=== PATIENT | female | born 1985 | race Caucasian/White ===

== ENCOUNTER 2022-11-16 21:08 | Emergency (ER) | payer BC ==
[~2022-11-16] VITALS: Ht 157.5 cm; Wt 77.7 kg
[~2022-11-16 21:08] MED LIST: BUPR1FIL3 SL; DIAZ10TA15 PO; QUET50TA24 PO; RIZA5TAB83 SL; SUMA50TA17 PO
[2022-11-16 22:36] VITALS: BP 115/72
[2022-11-16] MEDS ORDERED: ketorolac trometh inj. 60 MG/2 ML VIAL IM ONE (23:00)
[2022-11-16] MEDS ORDERED: HYDROcodone/acetaminophen 5mg/325mg tablet PO ONE (23:00)
[2022-11-16] MEDS ORDERED: HYDR-3965 PO (23:02)
== END 2022-11-16 23:20 | disposition home or self-care (01) ==
LOC: ER 21:13
DX: T14.8XXA Other injury of unspecified body region, initial encounter (principal); M79.641 Pain in right hand; M79.642 Pain in left hand; Z88.2 Allergy status to sulfonamides; Z98.890 Other specified postprocedural states; Z56.0 Unemployment, unspecified; W22.8XXA Striking against or struck by other objects, initial encounter; Y93.89 Activity, other specified; Y92.89 Other specified places as the place of occurrence of the external cause; Y99.8 Other external cause status
CPT/HCPCS: 29125; 73130; 96372; 99283; J1885; 29130

== ENCOUNTER 2023-08-28 08:16 | Emergency (ER) | payer BC ==
[~2023-08-28] VITALS: Ht 157.5 cm; Wt 71.0 kg
[2023-08-28 08:23] VITALS: TEMP 97.8
[2023-08-28 08:49] LABS: BILIRUBIN,URINE NEGATIVE (Neg); CLARITY,URINE CLOUDY (Clear); COLOR,URINE YELLOW (Yellow); GLUCOSE, URINE NEGATIVE (Neg); KETONES,URINE NEGATIVE (Neg); LEUKOCYTE ESTERASE ,URINE NEGATIVE (Neg); NITRITES, URINE POSITIVE (Neg); OCCULT BLOOD,URINE NEGATIVE (Neg); PROTEIN,URINE NEGATIVE (Neg); UROBILINOGEN,URINE 0.2 E.U/dL (0.2-1.0)
[2023-08-28 08:51] LABS: URINE HCG NEGATIVE (NEG)
[2023-08-28 09:02] LABS: UA COLLECTION TYPE CLN CATCH MIDSTREAM
[2023-08-28 09:03] LABS: BACTERIA,URINE 4+ /HPF (Neg); SQUAMOUS EPITHELIAL CELL,UR MANY /LPF (FEW)
[2023-08-28 09:04] LABS: RBC,URINE 0-2 /HPF (0-2)
[2023-08-28 09:27] LABS: BASOPHILS % (AUTO) 0.4 % (0-1); EOSINOPHILS # (AUTO) 0.1 X10'3 (0-0.9); EOSINOPHILS % (AUTO) 1.2 % (0-6); HEMATOCRIT 36.2 % (35.0-45.0); HEMOGLOBIN 12.1 g/dl (12.0-16.0); LYMPHOCYTES # (AUTO) 1.4 X10'3 (1.1-4.8); LYMPHOCYTES % (AUTO) 21.7 % (21-51); MEAN CORPUSCULAR HEMOGLOBIN 27.3 PG (27.0-31.0); MEAN CORPUSCULAR HGB CONC 33.3 g/dL (33.0-36.5); MEAN PLATELET VOLUME 8.3 FL (7.4-10.4); MONOCYTES # (AUTO) 0.3 X10'3 (0-0.9); MONOCYTES % (AUTO) 4.5 % (2-12); NEUTROPHILS # (AUTO) 4.7 X10'3 (1.8-7.7); NEUTROPHILS % (AUTO) 72.2 % (42-75); PLATELET COUNT 195 X10'3 (140-440); RED BLOOD COUNT 4.41 X10'6 (4.20-5.60); WHITE BLOOD COUNT 6.6 X10'3 (4.5-11.0)
[2023-08-28 09:39] LABS: ALANINE AMINOTRANSFERASE 15 U/L (12-78); ALBUMIN 3.7 G/DL (3.4-5.0); ALBUMIN/GLOBULIN RATIO 1.1 (1.1-1.5); ALKALINE PHOSPHATASE 53 IU/L (46-116); ANION GAP 7 (8-16); ASPARTATE AMINO TRANSFERASE 15 U/L (10-37); BILIRUBIN,TOTAL 0.3 MG/DL (0.1-1.0); BLOOD UREA NITROGEN 9 MG/DL (7-18); BUN/CREATININE RATIO 12.7 (10.0-20.0); CALCIUM 8.9 MG/DL (8.5-10.1); CHLORIDE 103 MMOL/L (99-107); CREATININE 0.71 MG/DL (0.40-0.90); GLUCOSE 106 MG/DL (70-104); LIPASE 12 U/L (16-77); POTASSIUM 4.2 MMOL/L (3.5-5.1); SODIUM 138 MMOL/L (135-145); TOTAL CARBON DIOXIDE 28.3 MMOL/L (24-32); TOTAL PROTEIN 7.2 G/DL (6.4-8.2); eCRCL 85 ML/MIN; eGFR > 90 ML/MIN
[2023-08-28] MEDS ORDERED: CefTRIAXone/D5W-Rocephin 1gm 50 ML IV ONE (11:05)
[2023-08-28] MEDS ORDERED: ondansetron/PF 4mg/2ml inj IV ONE (11:05)
[2023-08-28] MEDS ORDERED: ringers solution, lacted 1,000 ML IV ONE (11:05)
[2023-08-28] MEDS ORDERED: morphine 4 MG/ML inj SYRINge IV ONE (11:05)
[2023-08-28 13:44] VITALS: BP 105/63; PULSE 88; O2SAT 100
[2023-08-28] MEDS ORDERED: HYDROcodone/acetaminophen 10/325mg tab PO ONE (13:55)
[2023-08-28] MEDS ORDERED: HYDR-3965 PO (13:56)
[2023-08-28] MEDS ORDERED: CEPH-585 PO (13:56)
[2023-08-28 14:03] VITALS: RESP 16
== END 2023-08-28 14:10 | disposition home or self-care (01) ==
LOC: ER 08:17
DX: N39.0 Urinary tract infection, site not specified (principal); F31.9 Bipolar disorder, unspecified; Z98.890 Other specified postprocedural states; Z88.2 Allergy status to sulfonamides; Z79.899 Other long term (current) drug therapy
CPT/HCPCS: 36415; 80053; 81001; 81025; 83690; 85025; 96365; 96366; 96375; 99284; A6258; J0696; J2270; J2405; J7120

== ENCOUNTER 2023-11-12 11:17 | Inpatient (IN) | payer BC, OTHER ==
[~2023-11-12] VITALS: Ht 157.5 cm; Wt 68.3 kg
[2023-11-12 12:34] LABS: URINE HCG NEGATIVE (NEG)
[2023-11-12 12:36] LABS: BILIRUBIN,URINE NEGATIVE (Neg); CLARITY,URINE SLIGHTLY CLOUDY (Clear); COLOR,URINE YELLOW (Yellow); GLUCOSE, URINE NEGATIVE (Neg); KETONES,URINE NEGATIVE (Neg); LEUKOCYTE ESTERASE ,URINE NEGATIVE (Neg); NITRITES, URINE NEGATIVE (Neg); OCCULT BLOOD,URINE NEGATIVE (Neg); PH,URINE 5.5 (4.8-8.0); PROTEIN,URINE NEGATIVE (Neg); UROBILINOGEN,URINE 0.2 E.U/dL (0.2-1.0)
[2023-11-12 12:42] LABS: MUCUS STRANDS MODERATE /LPF (Neg); SQUAMOUS EPITHELIAL CELL,UR MANY /LPF (FEW); UA COLLECTION TYPE CLN CATCH MIDSTREAM
[2023-11-12 12:43] LABS: BACTERIA,URINE 2+ /HPF (Neg)
[2023-11-12 12:44] LABS: AMORPHOUS URATES 1+; RBC,URINE 0-2 /HPF (0-2); TRANSITIONAL EPI CELLS,URINE FEW /HPF; WBC,URINE 0-4 /HPF (0-4)
[2023-11-12 13:21] LABS: BASOPHILS % (AUTO) 0.7 % (0-1); EOSINOPHILS # (AUTO) 0.1 X10'3 (0-0.9); EOSINOPHILS % (AUTO) 2.1 % (0-6); HEMATOCRIT 35.3 % (35.0-45.0); HEMOGLOBIN 11.7 g/dl (12.0-16.0); LYMPHOCYTES # (AUTO) 1.6 X10'3 (1.1-4.8); LYMPHOCYTES % (AUTO) 23.4 % (21-51); MEAN CORPUSCULAR HEMOGLOBIN 27.2 PG (27.0-31.0); MEAN CORPUSCULAR VOLUME 82.2 FL (78-98); MEAN PLATELET VOLUME 8.3 FL (7.4-10.4); MONOCYTES # (AUTO) 0.5 X10'3 (0-0.9); MONOCYTES % (AUTO) 7.3 % (2-12); NEUTROPHILS # (AUTO) 4.6 X10'3 (1.8-7.7); NEUTROPHILS % (AUTO) 66.5 % (42-75); PLATELET COUNT 230 X10'3 (140-440); RED BLOOD COUNT 4.29 X10'6 (4.20-5.60)
[2023-11-12 13:34] LABS: ALANINE AMINOTRANSFERASE 35 U/L (12-78); ALBUMIN 3.7 G/DL (3.4-5.0); ALKALINE PHOSPHATASE 77 IU/L (46-116); ANION GAP 7 (8-16); ASPARTATE AMINO TRANSFERASE 22 U/L (10-37); BILIRUBIN,TOTAL 0.6 MG/DL (0.1-1.0); BLOOD UREA NITROGEN 10 MG/DL (7-18); BUN/CREATININE RATIO 12.5 (10.0-20.0); CALCIUM 8.6 MG/DL (8.5-10.1); CHLORIDE 103 MMOL/L (99-107); GLUCOSE 94 MG/DL (70-104); LIPASE 9 U/L (16-77); POTASSIUM 4.1 MMOL/L (3.5-5.1); SODIUM 139 MMOL/L (135-145); TOTAL CARBON DIOXIDE 29.3 MMOL/L (24-32); TOTAL PROTEIN 7.3 G/DL (6.4-8.2); eCRCL 75 ML/MIN; eGFR 80 ML/MIN
[2023-11-12] MEDS: ondansetron/PF 4mg/2ml inj IV ONE (18:09)
[2023-11-12] MEDS: HYDROmorphone inj. 0.5 MG/0.5 ML DISP.SYRIN IV ONE (18:09)
[2023-11-12] MEDS: morphine 4 MG/ML inj SYRINge IV ONE (19:20)
[2023-11-12] MEDS ORDERED: acetaminophen 325mg tablet PO PRN (20:30)
[2023-11-12] MEDS ORDERED: magnesium hydroxide 30ml (MOM) UD suspension PO PRN (20:30)
[2023-11-12] MEDS ORDERED: potassium Cl 40MEQ/1/2NS 520ml 520 ML IV PRN (20:30)
[2023-11-12] MEDS ORDERED: mag hydrox/Alum hydrox/simeth 30ml oral suspension PO PRN (20:30)
[2023-11-12] MEDS ORDERED: magnesium Cl slow-release 64mg tablet PO PRN (20:30)
[2023-11-12] MEDS ORDERED: potassium Cl 20 mEq SR tablet PO PRN ×2 (20:30)
[2023-11-12] MEDS ORDERED: magnesium 4gm in 100ml NS 100 ML IV PRN (20:30)
[2023-11-12] MEDS: ringers solution, lacted 1,000 ML IV ONE (20:35)
[2023-11-12 21:58] LABS: APTT 28 SECONDS (22-32); INR 1.1 INR; PROTHROMBIN TIME 11.4 SECONDS (9.0-12.0)
[2023-11-12] MEDS ORDERED: RIZA10TA98 (22:30)
[2023-11-12] MEDS ORDERED: SERT-433 PO (22:30)
[2023-11-12] MEDS ORDERED: SUMA6PEN13 SQ (22:30)
[2023-11-12] MEDS ORDERED: QUET200T31 PO (22:30)
[2023-11-12] MEDS: morphine 2 MG/ML inj. syringe IV PRN (22:58)
[2023-11-12 23:00] VITALS: BP 118/81; PULSE 100; RESP 16; TEMP 98.1; O2SAT 99
[2023-11-13] VITALS (9 sets, daily range): BP systolic 98–111; BP diastolic 62–81; PULSE 74–102; RESP 14–18; TEMP 97.8–99.1; O2SAT 96–99
[2023-11-13] MEDS ORDERED: piperacillin/tazo 3.375gm/50ml 50 ML IV SCH
[2023-11-13] MEDS: temazepam 15mg capsule PO PRN (00:37)
[2023-11-13] MEDS: piperacillin/tazo 4.5gm/100ml 100 ML IV SCH (00:37)
[2023-11-13] MEDS: normal saline 1000ml 1,000 ML IV SCH (01:38)
[2023-11-13] MEDS: diazepam 5mg tablet PO PRN (03:06)
[2023-11-13 06:07] LABS: EOSINOPHILS # (AUTO) 0.1 X10'3 (0-0.9); EOSINOPHILS % (AUTO) 2.8 % (0-6); HEMOGLOBIN 10.1 g/dl (12.0-16.0); LYMPHOCYTES # (AUTO) 1.4 X10'3 (1.1-4.8); LYMPHOCYTES % (AUTO) 34.5 % (21-51); MEAN CORPUSCULAR HEMOGLOBIN 27.7 PG (27.0-31.0); MEAN CORPUSCULAR HGB CONC 33.7 g/dL (33.0-36.5); MEAN CORPUSCULAR VOLUME 82.1 FL (78-98); MEAN PLATELET VOLUME 8.7 FL (7.4-10.4); MONOCYTES # (AUTO) 0.3 X10'3 (0-0.9); MONOCYTES % (AUTO) 8.6 % (2-12); NEUTROPHILS # (AUTO) 2.1 X10'3 (1.8-7.7); NEUTROPHILS % (AUTO) 53.1 % (42-75); PLATELET COUNT 178 X10'3 (140-440); RED BLOOD COUNT 3.65 X10'6 (4.20-5.60)
[2023-11-13 06:25] LABS: ALANINE AMINOTRANSFERASE 22 U/L (12-78); ALBUMIN 2.9 G/DL (3.4-5.0); ALBUMIN/GLOBULIN RATIO 0.9 (1.1-1.5); ALKALINE PHOSPHATASE 70 IU/L (46-116); ANION GAP 7 (8-16); ASPARTATE AMINO TRANSFERASE 25 U/L (10-37); BILIRUBIN,TOTAL 0.4 MG/DL (0.1-1.0); BLOOD UREA NITROGEN 8 MG/DL (7-18); BUN/CREATININE RATIO 11.1 (10.0-20.0); CALCIUM 7.8 MG/DL (8.5-10.1); CHLORIDE 104 MMOL/L (99-107); CREATININE 0.72 MG/DL (0.40-0.90); GLUCOSE 90 MG/DL (70-104); SODIUM 138 MMOL/L (135-145); TOTAL CARBON DIOXIDE 27.2 MMOL/L (24-32); TOTAL PROTEIN 6.1 G/DL (6.4-8.2); eCRCL 84 ML/MIN; eGFR > 90 ML/MIN
[2023-11-13 06:27] LABS: POTASSIUM 3.9 MMOL/L (3.5-5.1)
[2023-11-13] MEDS: quetiapine 100mg tablet PO SCH ×2 (08:00→20:35)
[2023-11-13] MEDS: docusate sod 100mg capsule PO SCH (08:00)
[2023-11-13] MEDS: morphine 2 MG/ML inj. syringe IV ONE (09:05)
[2023-11-13] MEDS: HYDROmorphone 1 mg/ml syringe IV PRN ×2 (10:17→16:04)
[2023-11-13] MEDS ORDERED: iohexol 300mg/ml 100ml inj. ONE (10:34)
[2023-11-13] MEDS ORDERED: BUPIVAcaine/PF 2.5mg/ml (0.25%) 10ml vial ONE (11:08)
[2023-11-13] MEDS ORDERED: morphine 2 MG/ML inj. syringe IV PRN (12:15)
[2023-11-13] MEDS ORDERED: labetalol 20mg/4ml (5mg/ml) syringe IV PRN (12:15)
[2023-11-13] MEDS ORDERED: ringers solution, lacted 1,000 ML IV SCH (12:15)
[2023-11-13] MEDS ORDERED: ondansetron/PF 4mg/2ml inj IV PRN (12:15)
[2023-11-13] MEDS ORDERED: hydrALAZINE 20mg/ml inj. IV PRN (12:15)
[2023-11-13] MEDS ORDERED: fentaNYL/PF 50MCG/1 ML 2ML syringe IV PRN ×2 (12:15)
[2023-11-13] MEDS ORDERED: fentaNYL/PF 50MCG/1 ML 2ML syringe ONE (12:54)
[2023-11-13] MEDS ORDERED: neostigmine methylsulfate 1 MG/ML 10ml vial ONE (12:55)
[2023-11-13] MEDS ORDERED: rocuronium 10mg/ml inj IV ONE (12:55)
[2023-11-13] MEDS ORDERED: ondansetron/PF 4mg/2ml inj ONE (12:55)
[2023-11-13] MEDS ORDERED: glycopyrrolate 0.2mg/ml inj ONE (12:55)
[2023-11-13] MEDS ORDERED: dexamethasone sod phosphate 4mg/ml inj. ONE (12:55)
[2023-11-13] MEDS ORDERED: midazolam 1 mg/ML 2ml injection ONE (12:55)
[2023-11-13] MEDS ORDERED: LIDOcaine 2% (20mg/ml) 5ml vial ONE (12:55)
[2023-11-13] MEDS ORDERED: propofol inj 0 ML IV ONE (12:55)
[2023-11-13] MEDS: morphine 4 MG/ML inj SYRINge IV PRN (13:00)
[2023-11-13] MEDS ORDERED: HYDROmorphone 1 mg/ml syringe IV PRN ×2 (13:55→14:15)
[2023-11-13] MEDS ORDERED: QUET100T34 PO (15:37)
[2023-11-13] MEDS: SUMAtriptan 25 MG tablet PO PRN (17:03)
[2023-11-13] MEDS: HYDROcodone/acetaminophen 5mg/325mg tablet PO PRN (20:34)
[2023-11-14 05:03] LABS: BASOPHILS % (AUTO) 0.9 % (0-1); EOSINOPHILS # (AUTO) 0.1 X10'3 (0-0.9); EOSINOPHILS % (AUTO) 3.2 % (0-6); HEMATOCRIT 29.3 % (35.0-45.0); HEMOGLOBIN 9.9 g/dl (12.0-16.0); LYMPHOCYTES # (AUTO) 1.3 X10'3 (1.1-4.8); LYMPHOCYTES % (AUTO) 38.1 % (21-51); MEAN CORPUSCULAR HEMOGLOBIN 27.5 PG (27.0-31.0); MEAN CORPUSCULAR HGB CONC 33.8 g/dL (33.0-36.5); MEAN CORPUSCULAR VOLUME 81.4 FL (78-98); MEAN PLATELET VOLUME 8.4 FL (7.4-10.4); MONOCYTES # (AUTO) 0.3 X10'3 (0-0.9); MONOCYTES % (AUTO) 7.6 % (2-12); NEUTROPHILS # (AUTO) 1.8 X10'3 (1.8-7.7); NEUTROPHILS % (AUTO) 50.2 % (42-75); PLATELET COUNT 169 X10'3 (140-440); RED CELL DISTRIBUTION WIDTH 13.8 % (11.5-14.5); WHITE BLOOD COUNT 3.5 X10'3 (4.5-11.0)
[2023-11-14 05:16] LABS: ALANINE AMINOTRANSFERASE 25 U/L (12-78); ALBUMIN 2.8 G/DL (3.4-5.0); ALBUMIN/GLOBULIN RATIO 0.9 (1.1-1.5); ALKALINE PHOSPHATASE 60 IU/L (46-116); ANION GAP 9 (8-16); ASPARTATE AMINO TRANSFERASE 16 U/L (10-37); BILIRUBIN,TOTAL 0.3 MG/DL (0.1-1.0); BLOOD UREA NITROGEN 5 MG/DL (7-18); BUN/CREATININE RATIO 6.5 (10.0-20.0); CALCIUM 8.1 MG/DL (8.5-10.1); CHLORIDE 109 MMOL/L (99-107); CREATININE 0.77 MG/DL (0.40-0.90); GLUCOSE 97 MG/DL (70-104); POTASSIUM 3.7 MMOL/L (3.5-5.1); SODIUM 143 MMOL/L (135-145); TOTAL CARBON DIOXIDE 25.4 MMOL/L (24-32); TOTAL PROTEIN 5.8 G/DL (6.4-8.2); eCRCL 78 ML/MIN; eGFR 84 ML/MIN
[2023-11-14 06:00] VITALS: BP 99/53; PULSE 91; RESP 16; TEMP 97.9; O2SAT 99
[2023-11-14] MEDS: HYDROcodone/acetaminophen 10/325mg tab PO PRN (07:31)
[2023-11-14 07:59] VITALS: RESP 17; O2SAT 99
[2023-11-14] MEDS: sertraline 50mg tablet PO SCH (09:50)
[2023-11-14 10:00] VITALS: BP 114/70; PULSE 74; RESP 17; TEMP 97.9; O2SAT 99
[2023-11-14] MEDS ORDERED: iohexol 300 MG/1 ML 50ml polymer ONE (11:05)
[2023-11-14] MEDS ORDERED: iohexol 300mg/ml 100ml inj. ONE (11:05)
[2023-11-14] MEDS: simethicone 80mg chew tab PO SCH (14:03)
[2023-11-14 18:00] VITALS: BP 112/77; PULSE 82; RESP 17; TEMP 98.2; O2SAT 98
[2023-11-14] MEDS: bisacodyl 5mg tablet.DR PO ONE (18:15)
[2023-11-14] MEDS: HYDROmorphone 1 mg/ml syringe IV PRN (18:18)
[2023-11-14] MEDS: polyethylene glycol 3350 17gm powd pack PO SCH (19:58)
[2023-11-14 20:01] VITALS: BP 109/73; PULSE 92; RESP 16; O2SAT 100
[2023-11-14 22:00] VITALS: BP 96/57; PULSE 92; RESP 14; TEMP 98.2; O2SAT 95
[2023-11-15 07:20] LABS: BASOPHILS % (AUTO) 0.6 % (0-1); EOSINOPHILS # (AUTO) 0.1 X10'3 (0-0.9); EOSINOPHILS % (AUTO) 2.7 % (0-6); HEMATOCRIT 30.3 % (35.0-45.0); LYMPHOCYTES # (AUTO) 1.2 X10'3 (1.1-4.8); LYMPHOCYTES % (AUTO) 22.5 % (21-51); MEAN CORPUSCULAR HEMOGLOBIN 27.3 PG (27.0-31.0); MEAN CORPUSCULAR HGB CONC 33.1 g/dL (33.0-36.5); MEAN CORPUSCULAR VOLUME 82.4 FL (78-98); MEAN PLATELET VOLUME 8.4 FL (7.4-10.4); MONOCYTES # (AUTO) 0.3 X10'3 (0-0.9); MONOCYTES % (AUTO) 5.8 % (2-12); NEUTROPHILS # (AUTO) 3.8 X10'3 (1.8-7.7); NEUTROPHILS % (AUTO) 68.4 % (42-75); PLATELET COUNT 176 X10'3 (140-440); RED BLOOD COUNT 3.68 X10'6 (4.20-5.60); RED CELL DISTRIBUTION WIDTH 14.2 % (11.5-14.5); WHITE BLOOD COUNT 5.5 X10'3 (4.5-11.0)
[2023-11-15 07:24] VITALS: BP 110/70; PULSE 66; RESP 18; TEMP 98; O2SAT 95
[2023-11-15 07:47] LABS: ALANINE AMINOTRANSFERASE 24 U/L (12-78); ALBUMIN 2.9 G/DL (3.4-5.0); ALBUMIN/GLOBULIN RATIO 0.9 (1.1-1.5); ALKALINE PHOSPHATASE 73 IU/L (46-116); ANION GAP 4 (8-16); ASPARTATE AMINO TRANSFERASE 23 U/L (10-37); BILIRUBIN,TOTAL 0.4 MG/DL (0.1-1.0); BLOOD UREA NITROGEN 5 MG/DL (7-18); BUN/CREATININE RATIO 5.6 (10.0-20.0); CHLORIDE 105 MMOL/L (99-107); CREATININE 0.89 MG/DL (0.40-0.90); GLUCOSE 114 MG/DL (70-104); POTASSIUM 3.6 MMOL/L (3.5-5.1); SODIUM 138 MMOL/L (135-145); TOTAL CARBON DIOXIDE 28.6 MMOL/L (24-32); TOTAL PROTEIN 6.2 G/DL (6.4-8.2); eCRCL 68 ML/MIN; eGFR 71 ML/MIN
[2023-11-15 07:55] VITALS: RESP 18; O2SAT 100
[2023-11-15] MEDS: ondansetron/PF 4mg/2ml inj IV PRN (10:15)
[2023-11-15 10:30] VITALS: BP 116/81; PULSE 91; RESP 14; TEMP 98.1; O2SAT 100
[2023-11-15] MEDS ORDERED: oxyCODONE/APAP 10/325mg tablet PO PRN ×2 (10:40→17:25)
[2023-11-15] MEDS ORDERED: enoxaparin 100mg/ml syringe SUBCUT SCH (11:10)
[2023-11-15] MEDS: oxyCODONE/APAP 10/325mg tablet PO PRN (11:31)
[2023-11-15] MEDS: enoxaparin 30mg/0.3ml syringe SUBCUT SCH (12:09)
[2023-11-15] MEDS: enoxaparin 40mg/0.4ml syringe SQ SCH (12:10)
[2023-11-15] MEDS: bisacodyl 5mg tablet.DR PO PRN (15:07)
[2023-11-15] MEDS: HYDROmorphone 1 mg/ml syringe IV PRN (15:40)
[2023-11-15 18:00] VITALS: BP 95/68; PULSE 80; RESP 18; TEMP 98.4; O2SAT 97
[2023-11-15 20:00] VITALS: RESP 18; O2SAT 100
[2023-11-15 22:00] VITALS: BP 115/73; PULSE 96; RESP 16; TEMP 97.7; O2SAT 99
[2023-11-16 06:00] VITALS: BP 111/64; PULSE 104; RESP 16; TEMP 98.5; O2SAT 95
[2023-11-16 06:26] LABS: BASOPHILS % (AUTO) 0.7 % (0-1); EOSINOPHILS # (AUTO) 0.1 X10'3 (0-0.9); EOSINOPHILS % (AUTO) 2.7 % (0-6); HEMATOCRIT 29.6 % (35.0-45.0); HEMOGLOBIN 9.9 g/dl (12.0-16.0); LYMPHOCYTES % (AUTO) 22.3 % (21-51); MEAN CORPUSCULAR HEMOGLOBIN 27.6 PG (27.0-31.0); MEAN CORPUSCULAR HGB CONC 33.3 g/dL (33.0-36.5); MEAN CORPUSCULAR VOLUME 82.8 FL (78-98); MEAN PLATELET VOLUME 8.7 FL (7.4-10.4); MONOCYTES # (AUTO) 0.4 X10'3 (0-0.9); MONOCYTES % (AUTO) 8.3 % (2-12); NEUTROPHILS # (AUTO) 3.1 X10'3 (1.8-7.7); PLATELET COUNT 161 X10'3 (140-440); RED BLOOD COUNT 3.57 X10'6 (4.20-5.60); RED CELL DISTRIBUTION WIDTH 14.3 % (11.5-14.5); WHITE BLOOD COUNT 4.7 X10'3 (4.5-11.0)
[2023-11-16 06:39] LABS: ALANINE AMINOTRANSFERASE 31 U/L (12-78); ALBUMIN 2.9 G/DL (3.4-5.0); ALBUMIN/GLOBULIN RATIO 0.9 (1.1-1.5); ALKALINE PHOSPHATASE 69 IU/L (46-116); ANION GAP 5 (8-16); ASPARTATE AMINO TRANSFERASE 26 U/L (10-37); BILIRUBIN,TOTAL 0.5 MG/DL (0.1-1.0); BLOOD UREA NITROGEN 5 MG/DL (7-18); BUN/CREATININE RATIO 6.1 (10.0-20.0); CALCIUM 8.1 MG/DL (8.5-10.1); CHLORIDE 106 MMOL/L (99-107); CREATININE 0.82 MG/DL (0.40-0.90); GLUCOSE 116 MG/DL (70-104); POTASSIUM 3.4 MMOL/L (3.5-5.1); SODIUM 139 MMOL/L (135-145); TOTAL CARBON DIOXIDE 28.4 MMOL/L (24-32); TOTAL PROTEIN 6.2 G/DL (6.4-8.2); eCRCL 74 ML/MIN; eGFR 78 ML/MIN
[2023-11-16 10:00] VITALS: BP 121/87; PULSE 96; RESP 16; TEMP 97.6; O2SAT 97
[2023-11-16 11:36] VITALS: RESP 18
[2023-11-16] MEDS ORDERED: magnesium 2GM in 50ml NS 50 ML IV PRN (13:35)
[2023-11-16] MEDS ORDERED: magnesium 4gm in 100ml NS 100 ML IV PRN (13:35)
[2023-11-16] MEDS ORDERED: potassium Cl 40MEQ/1/2NS 520ml 520 ML IV PRN (13:35)
[2023-11-16] MEDS ORDERED: magnesium Cl slow-release 64mg tablet PO PRN (13:35)
[2023-11-16] MEDS ORDERED: potassium Cl 20 mEq SR tablet PO PRN (13:35)
[2023-11-16] MEDS: potassium Cl 20 mEq SR tablet PO PRN (17:41)
[2023-11-16 18:00] VITALS: BP 116/73; PULSE 90; RESP 14; TEMP 98.1; O2SAT 96
[2023-11-16 20:00] VITALS: RESP 14; O2SAT 96
[2023-11-16] MEDS: sertraline 50mg tablet PO SCH (21:07)
[2023-11-16 23:40] VITALS: BP 94/74; PULSE 205; RESP 18; TEMP 98.8; O2SAT 97
[2023-11-17 06:00] VITALS: BP 100/67; PULSE 85; RESP 18; TEMP 97.3; O2SAT 94
[2023-11-17 06:13] LABS: BASOPHILS % (AUTO) 0.7 % (0-1); EOSINOPHILS # (AUTO) 0.2 X10'3 (0-0.9); HEMATOCRIT 30.7 % (35.0-45.0); HEMOGLOBIN 10.3 g/dl (12.0-16.0); LYMPHOCYTES # (AUTO) 1.6 X10'3 (1.1-4.8); LYMPHOCYTES % (AUTO) 36.7 % (21-51); MEAN CORPUSCULAR HEMOGLOBIN 27.6 PG (27.0-31.0); MEAN CORPUSCULAR HGB CONC 33.6 g/dL (33.0-36.5); MEAN CORPUSCULAR VOLUME 82.3 FL (78-98); MEAN PLATELET VOLUME 8.7 FL (7.4-10.4); MONOCYTES # (AUTO) 0.3 X10'3 (0-0.9); MONOCYTES % (AUTO) 8.2 % (2-12); NEUTROPHILS # (AUTO) 2.1 X10'3 (1.8-7.7); NEUTROPHILS % (AUTO) 50.4 % (42-75); PLATELET COUNT 176 X10'3 (140-440); RED BLOOD COUNT 3.73 X10'6 (4.20-5.60); RED CELL DISTRIBUTION WIDTH 14.3 % (11.5-14.5); WHITE BLOOD COUNT 4.2 X10'3 (4.5-11.0)
[2023-11-17 06:34] LABS: ALANINE AMINOTRANSFERASE 26 U/L (12-78); ALBUMIN 2.9 G/DL (3.4-5.0); ALBUMIN/GLOBULIN RATIO 0.8 (1.1-1.5); ALKALINE PHOSPHATASE 66 IU/L (46-116); ANION GAP 9 (8-16); ASPARTATE AMINO TRANSFERASE 19 U/L (10-37); BILIRUBIN,TOTAL 0.4 MG/DL (0.1-1.0); BLOOD UREA NITROGEN 7 MG/DL (7-18); BUN/CREATININE RATIO 8.4 (10.0-20.0); CALCIUM 8.4 MG/DL (8.5-10.1); CHLORIDE 105 MMOL/L (99-107); CREATININE 0.83 MG/DL (0.40-0.90); GLUCOSE 124 MG/DL (70-104); POTASSIUM 3.9 MMOL/L (3.5-5.1); SODIUM 141 MMOL/L (135-145); TOTAL CARBON DIOXIDE 26.7 MMOL/L (24-32); TOTAL PROTEIN 6.4 G/DL (6.4-8.2); eCRCL 73 ML/MIN; eGFR 77 ML/MIN
[2023-11-17 08:00] VITALS: RESP 16; O2SAT 94
[2023-11-17 10:00] VITALS: BP 105/78; PULSE 87; RESP 18; TEMP 97.6; O2SAT 98
[2023-11-17 13:30] VITALS: RESP 18
[2023-11-17 22:00] VITALS: BP 117/90; PULSE 110; RESP 20; TEMP 97.6; O2SAT 99
[2023-11-18 06:00] VITALS: BP 100/74; PULSE 104; RESP 20; TEMP 96.8; O2SAT 100
[2023-11-18 07:30] VITALS: RESP 20; O2SAT 100
[2023-11-18 10:00] VITALS: BP 109/71; PULSE 83; RESP 18; TEMP 98.5; O2SAT 100
[2023-11-18] MEDS: morphine ER 30mg tablet PO SCH (17:07)
[2023-11-18] MEDS: morphine ER 30mg tablet PO ONE (17:24)
[2023-11-18 18:00] VITALS: BP 98/60; PULSE 84; RESP 16; TEMP 97.6; O2SAT 97
[2023-11-18 20:00] VITALS: RESP 16; O2SAT 97
[2023-11-18 22:00] VITALS: BP 116/75; PULSE 86; RESP 18; TEMP 99.1; O2SAT 98
[2023-11-18] MEDS: morphine 2 MG/ML inj. syringe IV PRN (22:12)
[2023-11-19 06:00] VITALS: BP 121/60; PULSE 101; RESP 18; TEMP 97.8; O2SAT 98
[2023-11-19 08:45] VITALS: RESP 16
[2023-11-19 09:45] VITALS: BP 117/66; PULSE 90; RESP 14; TEMP 98.9; O2SAT 97
[2023-11-19 18:00] VITALS: BP 106/68; PULSE 92; RESP 16; TEMP 98.5; O2SAT 97
[2023-11-19 18:30] VITALS: BP 106/68; PULSE 92; RESP 16; TEMP 98.5; O2SAT 97
[2023-11-19 21:34] VITALS: RESP 18
== END 2023-11-19 21:49 | disposition short-term general hospital (02) | DRG 444 ==
LOC: ER 11:17 → ED HOLD 20:31 → EDBEDREQ 22:21 → SUR 3N 23:05
PROVIDERS: ADMIT Surgery Surgical Critical Care; ATTEND Internal Medicine
PROC: BW211ZZ Computerized Tomography (CT Scan) of Abdomen and Pelvis using Low Osmolar Contrast (ICD-10-PCS; principal; 2023-11-13)
PROC: BW281ZZ Computerized Tomography (CT Scan) of Head using Low Osmolar Contrast (ICD-10-PCS; 2023-11-14)
DX: K80.00 Calculus of gallbladder with acute cholecystitis without obstruction (principal); K55.059 Acute (reversible) ischemia of intestine, part and extent unspecified; F32.A Depression, unspecified; F41.9 Anxiety disorder, unspecified; R16.1 Splenomegaly, not elsewhere classified; K59.00 Constipation, unspecified; K86.89 Other specified diseases of pancreas; G43.909 Migraine, unspecified, not intractable, without status migrainosus; K83.8 Other specified diseases of biliary tract; D64.9 Anemia, unspecified; D73.5 Infarction of spleen; Z88.2 Allergy status to sulfonamides; Z98.891 History of uterine scar from previous surgery; Z56.0 Unemployment, unspecified; Z98.84 Bariatric surgery status; Z88.4 Allergy status to anesthetic agent; Z79.899 Other long term (current) drug therapy
CPT/HCPCS: 36415; 70470; 71260; 74177; 76700; 80053; 81001; 81025; 82378; 82948; 83690; 85025; 85610; 85730; 86301; 87081; 96374; 96375; 99291; A6258; G0378; J1100; J1170; J1650; J2250; J2270; J2405; J2543; J2704; J2710; J3010; J3490; J7030; J7120; Q9967